=== PATIENT | female | born 1960 | race Caucasian/White ===

== ENCOUNTER 2016-08-22 14:41 | Emergency (ER) | payer OTHER ==
--- NOTE | 2016-08-25 13:52 | ER ---
ADMIT: 08/22/2016 RM/LOC: ER [facility] MR#: [id number] [address] [place], [place] [id number] SOILA WRIGHT [address] [place] [address] Emergency Room Report SEX: F AGE: 56 : 1960 DATE: 08/22/2016 PRIMARY CARE: Dr. Rod. CHIEF COMPLAINT: Medication refill and abdominal pain. HISTORY OF PRESENT ILLNESS: A 56-year-old female, who presents to the ER after she ran out of her script for MS Contin. She states she is currently undergoing chemotherapy for advanced cervical cancer. Dr. Rucker had prescribed her MS Contin for her lower abdominal pelvic pain. She states she primarily has pain over the right lower quadrant, but mainly throughout the pelvis as well. Otherwise, feels well about, at her baseline today. She is concerned that she has not had her medicines tonight. She will be able to handle the pain. Kind of describes it as a stabbing pain associated with some nausea. Otherwise feels well. She has only taken 2 chemotherapy treatments at this point. COURSE IN THE EMERGENCY ROOM: GENERAL: The patient was seen and examined in no acute distress. Afebrile and nontoxic. ABDOMEN: She does have some tenderness to the right lower quadrant. No guarding or rebound. She has good bowel sounds. Otherwise unremarkable. I did have a long discussion with her today about the importance of ensuring she has adequate med supply before weekends and traveling giving her current medical state. She expressed good understanding. I explained to them the heavy restrictions on narcotic pain medications the need for hand-carried scripts, only other concerns with narcotic pain medications, she expressed understanding. IMPRESSION: 1. Cervical cancer. 2. Right lower quadrant abdominal pain. 3. Prescription refill. DISPOSITION: The patient was refilled MS Contin 15 mg tabs one tab p.o. b.i.d. as needed for pain #6. She is to follow up with Dr. Rucker on Wednesday to refill her script to ensure adequate med supply for weekend and traveling. Otherwise, continue home medications. Return with worsening signs or symptoms. JENIFER Arce / Dharmesh Madison MD / robbie JOB #: [id number] CC: Dharmesh Madison MD, Attending Physician Abel Rucker MD, Family Physician Abel Rucker MD
[2016-09-20] MEDS ORDERED: PAXIL DPS20 MG PO (09:57)
[2016-09-20] MEDS ORDERED: BUSPAR5 MG PO (09:57)
[2016-09-20] MEDS ORDERED: PRILOSEC DPS20 MG PO (09:58)
[2016-09-20] MEDS ORDERED: MICRO-K DPS10 MEQ PO (09:58)
[2016-09-20] MEDS ORDERED: MS CONTIN DPS15 MG PO (09:58)
[2016-09-20] MEDS ORDERED: COMPAZINE10 MG PO (09:59)
[2016-09-20] MEDS ORDERED: AUGMENTIN 875-1 EACH PO (09:59)
== END 2016-08-22 15:17 | disposition home or self-care (01) ==
LOC: ER 14:41
DX: R10.31 Right lower quadrant pain (principal); C53.9 Malignant neoplasm of cervix uteri, unspecified; Z76.0 Encounter for issue of repeat prescription; Z90.710 Acquired absence of both cervix and uterus; Z79.899 Other long term (current) drug therapy